=== PATIENT | female | born 1990 | race Caucasian/White ===

== ENCOUNTER 2020-06-10 12:54 | Inpatient (IN) | payer OTHER ==
[~2020-06-10] VITALS: Ht 182.9 cm; Wt 79.9 kg
[2020-06-10] MEDS ORDERED: IV NORMAL SALINE 1,000ML 1,000 ML IV ONE (13:15)
--- NOTE | 2020-06-10 13:16 | PHYS DOC ---
Past History Past Medical History: No Pertinent History Adult General Chief Complaint Chief Complaint: MUSCLE SPASM/CRAMP HPI HPI Patient is a 30-year-old female who presents for rhabdomyolysis. Patient currently on Accutane, reports having extremely strenuous workout 3 days prior to arrival. Ever since has complained of extreme muscle soreness. Patient concerned as she is currently on Accutane and rhabdomyolysis is often a side effect of taking this medication. Patient saw primary care physician this morning who performed routine laboratory analysis, her creatinine kinase was approximately 13,000 at that time. PCP advised patient to seek further evaluation at our ER for consideration for admission for continued medical management. Patient denies any headache, chest pain, shortness of breath, fever, chills, motor or sensory deficits but admits occasional muscle cramping and ongoing soreness and fatigue. Admits her urine production has been steady throughout, has been tolerating p.o. intake Review of Systems Review of Systems Fourteen body systems of review of systems have been reviewed. See HPI for pertinent positives and negative responses, other echavarria all other systems are negative, non-pertinent or non-contributory Current Medications Current Medications Current Medications Medications (Trade) Dose Ordered Sig/Asad Start Time Stop Time Status Last Admin Dose Admin Sodium Chloride 1,000 ml @ 1,000 mls/hr 1X ONCE 06/10/20 13:15 06/10/20 14:14 Allergies Allergies Allergies Coded Allergies Type Severity Reaction Last Updated Verified Penicillins Allergy Intermediate Hives 06/10/20 Yes Physical Exam Physical Exam Constitutional: Well developed, well nourished, no acute distress, non-toxic dara earance. Tolerating p.o. intake on arrival HENT: Normocephalic, atraumatic, bilateral external ears normal, oropharynx moist, no oral exudates, nose normal. Eyes: PERRLA, EOMI, conjunctiva normal, no discharge. Neck: Normal range of motion, no tenderness, supple, no stridor. Cardiovascular: Heart rate regular, sinus rhythm, no murmurs rubs or gallops Lungs & Thorax: Bilateral breath sounds clear to auscultation Abdomen: Bowel sounds normal, soft, no tenderness, no masses, no pulsatile masses. Nonsurgical abdomen, no peritoneal signs Skin: Warm, dry, no erythema, no rash. Back: No tenderness, no CVA tenderness. Extremities: No cyanosis, no clubbing, ROM intact, no edema. Tenderness to bilateral upper and lower extremities proximally in thighs/hamstrings and biceps/triceps with palpation. No gross deficits noted, gait unremarkable Neurologic: Alert and oriented X 3, grossly normal motor & sensory function, no focal deficits noted. Psychologic: Affect normal, judgement normal, mood normal. Current Patient Data Vital Signs Vital Signs Date Time Temp Pulse Resp B/P (MAP) Pulse Ox O2 Delivery O2 Flow Rate FiO2 06/10/20 16:12 98.8 60 18 123/91 (102) 97 Room Air Lab Results Laboratory Tests Test 06/10/20 13:19 White Blood Count 6.2 x10^3/uL (4.0-11.0) Red Blood Count 4.38 x10^6/uL (3.50-5.40) Hemoglobin 13.1 g/dL (12.0-15.5) Hematocrit 39.2 % (36.0-47.0) Mean Corpuscular Volume 90 fL (79-100) Mean Corpuscular Hemoglobin 30 pg (25-35) Mean Corpuscular Hemoglobin Concent 33 g/dL (31-37) Red Cell Distribution Width 13.6 % (11.5-14.5) Platelet Count 256 x10^3/uL (140-400) Neutrophils (%) (Auto) 56 % (31-73) Lymphocytes (%) (Auto) 32 % (24-48) Monocytes (%) (Auto) 9 % (0-9) Eosinophils (%) (Auto) 2 % (0-3) Basophils (%) (Auto) 1 % (0-3) Neutrophils # (Auto) 3.5 x10^3uL (1.8-7.7) Lymphocytes # (Auto) 2.0 x10^3/uL (1.0-4.8) Monocytes # (Auto) 0.6 x10^3/uL (0.0-1.1) Eosinophils # (Auto) 0.1 x10^3/uL (0.0-0.7) Basophils # (Auto) 0.0 x10^3/uL (0.0-0.2) Urine Collection Type Unknown Urine Color Yellow Urine Clarity Clear Urine pH 6.5 Urine Specific [place] 1.015 Urine Protein Neg (NEG-TRACE) Urine Glucose (UA) Neg mg/dL (NEG) Urine Ketones (Stick) Neg mg/dL (NEG) Urine Blood Trace (NEG) Urine Nitrite Neg (NEG) Urine Bilirubin Neg (NEG) Urine Urobilinogen Dipstick 0.2 mg/dL (0.2 mg/dL) Urine Leukocyte Esterase Neg (NEG) Urine RBC 3-5 /HPF (0-2) Urine WBC Occ /HPF (0-4) Urine Squamous Epithelial Cells Few /LPF Urine Bacteria 0 /HPF (0-FEW) Urine Test Negative (NEG) Sodium Level 139 mmol/L (136-145) Potassium Level 3.8 mmol/L (3.5-5.1) Chloride Level 101 mmol/L (98-107) Carbon Dioxide Level 28 mmol/L (21-32) Anion Gap 10 (6-14) Blood Urea Nitrogen 12 mg/dL (7-20) Creatinine 1.0 mg/dL (0.6-1.0) Estimated GFR (Cockcroft-Gault) 64.7 BUN/Creatinine Ratio 12 (6-20) Glucose Level 70 mg/dL (70-99) Calcium Level 8.9 mg/dL (8.5-10.1) Total Bilirubin 0.3 mg/dL (0.2-1.0) Aspartate Amino Transf (AST/SGOT) 260 U/L (15-37) Alanine Aminotransferase (ALT/SGPT) 52 U/L (14-59) Alkaline Phosphatase 50 U/L (46-116) Creatine Kinase 76432 U/L (26-192) Total Protein 7.7 g/dL (6.4-8.2) Albumin 4.0 g/dL (3.4-5.0) Albumin/Globulin Ratio 1.1 (1.0-1.7) EKG EKG [] Radiology/Procedures Radiology/Procedures [] Heart Score HEART Score for Chest Pain: HEART Score for Chest Pain Response (Comments) Value History Slighlty/Non-Suspicious 0 ECG Normal 0 Age < 45 0 Risk Factors No Risk Factors 0 Total 0 Risk Factors: Risk Factors: DM, Current or recent (<one month) smoker, HTN, HLP, family history of CAD, obesity. Risk Scores: Risk Factors: DM, Current or recent (<one month) smoker, HTN, HLP, family history of CAD, obesity. Course & Med Decision Making Course & Med Decision Making Pertinent Labs and Imaging studies reviewed. (See chart for details) Discussed most likely diagnosis of rhabdomyolysis with patient. I advised her the need of discontinuation of Accutane temporarily and need for admission for continued IV fluid rehydration. She was amenable Dr. Venegas, on-call hospitalist at [facility] was contacted and case discussed, he agreed to admission under his care for continued medical management Patient updated on plan of care and amenable, all questions and concerns addressed prior to ER departure to [facility] for further medical management in stable condition Dragon Disclaimer Dragon Disclaimer This electronic medical record was generated, in whole or in part, using a voice recognition dictation system. Departure Departure: Impression: Primary Impression: Rhabdomyolysis Additional Impression: On Accutane therapy Disposition: 09 ADMITTED INPT THIS HOSP Admitting Physician: Modesto Venegas Condition: STABLE Referrals: SONIA CHEUNG MD (PCP) Problem Qualifiers JUNE CHRISTY DO Jun 10, 2020 13:16
[2020-06-10 13:39] LABS: BASO % 1 % (0-3); EOS # 0.1 x10^3/uL (0.0-0.7); EOS % 2 % (0-3); HEMATOCRIT 39.2 % (36.0-47.0); HEMOGLOBIN 13.1 g/dL (12.0-15.5); LYMPH % 32 % (24-48); MEAN CORPUSCULAR HEMOGLOBIN 30 pg (25-35); MEAN CORPUSCULAR HGB CONC 33 g/dL (31-37); MEAN CORPUSCULAR VOLUME 90 fL (79-100); MONO # 0.6 x10^3/uL (0.0-1.1); MONO % 9 % (0-9); NEUT # 3.5 x10^3uL (1.8-7.7); NEUT % 56 % (31-73); PLATELET COUNT 256 x10^3/uL (140-400); RED BLOOD COUNT 4.38 x10^6/uL (3.50-5.40); RED CELL DISTRIBUTION WIDTH 13.6 % (11.5-14.5); WHITE BLOOD COUNT 6.2 x10^3/uL (4.0-11.0)
[2020-06-10 13:46] LABS: CALCIUM 8.9 mg/dL (8.5-10.1); GFR 64.7; POTASSIUM 3.8 mmol/L (3.5-5.1)
[2020-06-10 13:52] LABS: COLOR,URINE YELLOW
[2020-06-10 13:53] LABS: BACTERIA,URINE 0 /HPF (0-FEW); BILIRUBIN,URINE NEG (NEG); CLARITY,URINE CLEAR; GLUCOSE,URINE NEG (NEG); NITRITE,URINE NEG (NEG); SQUAMOUS EPITHELIAL CELL,UR FEW /LPF; U PREG PATIENT NEGATIVE (NEG); UROBILINOGEN,URINE 0.2 mg/dL (0.2 mg/dL); WBC,URINE OCC /HPF (0-4)
[2020-06-10 14:02] LABS: ALBUMIN/GLOBULIN RATIO 1.1 (1.0-1.7); TOTAL BILIRUBIN 0.3 mg/dL (0.2-1.0); TOTAL PROTEIN 7.7 g/dL (6.4-8.2)
[2020-06-10] MEDS: IV NORMAL SALINE 1,000ML 1,000 ML IV SCH ×2 (15:05→16:29)
[2020-06-10 16:12] VITALS: BP 123/91
[2020-06-10] MEDS ORDERED: [UNRECOGNIZED DRUG - OTHER] PO (16:56)
[2020-06-10 19:45] VITALS: BP 132/75
[2020-06-10 22:56] VITALS: BP 129/64
[2020-06-11] MEDS: IV NORMAL SALINE 1,000ML 1,000 ML IV SCH (00:34)
[2020-06-11 05:41] VITALS: BP 104/68
[2020-06-11 06:46] LABS: CALCIUM 8.3 mg/dL (8.5-10.1); GFR 64.7; POTASSIUM 3.7 mmol/L (3.5-5.1)
--- NOTE | 2020-06-11 09:17 | DS ---
DATE OF DISCHARGE: 06/11/2020 ATTENDING PHYSICIAN: Dr. Armstrong. FINAL DISCHARGE DIAGNOSES: 1. Acute rhabdomyolysis. 2. Myalgias. 3. History of Accutane use for acne. HISTORY OF PRESENT ILLNESS: The patient is a 30-year-old female who had a rigorous workout 3 days prior to admission. She was also on Accutane. She had myalgias. Lab work showed an acute rhabdomyolysis. PHYSICAL EXAMINATION: Please see the dictated note. PERTINENT LABORATORY AND X-RAY STUDIES: Admission hemoglobin was 13.1 g/dL with white count of 6200. The initial CPK was 17,234, repeated the next morning is down to 11,500. Her creatinine on admission and repeated stated 1.0 mg/dL. Electrolytes within normal range. COURSE IN THE HOSPITAL: The patient was admitted. She was started on IV hydration. Diet was advanced. No new meds were entertained. Her repeat lab work the next day showed a stable creatinine, CPK is coming down from 17,000-11,500. She felt well. She was medically stable, she was ready for discharge. I recommended that: 1. She call her improvement nurse regarding further Accutane use following the overnight hospitalization. 2. I recommended repeat lab work with her primary care physician in 2 weeks. This patient was then discharged from our hospital in stable condition with explicit instructions and followup care. GARY ARMSTRONG MD DR: DARRELL/navya JOB#: [id number] / [id number]
--- NOTE | 2020-06-11 09:21 | HP ---
ADMIT DATE: 06/11/2020 ATTENDING PHYSICIAN: Dr. Armstrong. CHIEF COMPLAINT: Muscle spasm. HISTORY OF PRESENT ILLNESS: The patient is a fairly healthy 30-year-old female who had a strenuous workout 3 days prior to admission. She was also taking Accutane is only medication. She has extreme muscle soreness. Lab work showed rhabdomyolysis with a creatine kinase of 13,000 and repeated was 17,000. She had no signs of renal failure. She was admitted then for hydration and followup. PAST MEDICAL HISTORY: Significant for the acne. SOCIAL HISTORY: She is . She has 2 children, ages 2 and 4. She is a nonsmoker and nondrinker. ALLERGIES: SHE HAS ALLERGIES TO PENICILLIN, WHICH CAUSES RASH. FAMILY HISTORY: Both her parents are alive in their late 50s, they were both smokers, they were moderately healthy. REVIEW OF SYSTEMS: Significant for the workout 3 days ago muscle soreness in both arms, worse on the right side. No nausea or vomiting. No COVID exposure. No fevers or chills. All other systems reviewed and determined to be negative. PHYSICAL EXAMINATION: GENERAL: When I saw her, this is a pleasant young female. INITIAL VITAL SIGNS: Showed a blood pressure of 129/64 mmHg, pulse of 63 and regular. She was afebrile, room air saturation 98%. HEENT: Head is without trauma. Pupils are reactive. Sclerae nonicteric. Oropharynx is clear. NECK: Supple, no bruits identified. LUNGS: Clear. CARDIOVASCULAR: Showed regular heart tones. No gallops, no murmurs. Peripheral pulses are palpable and full. ABDOMEN: Soft, scaphoid, nontender, no organomegaly. EXTREMITIES: Showed no cyanosis or edema. NEUROLOGIC FINDINGS: Focally intact. SKIN: Warm and dry. PERTINENT LABORATORY STUDIES: The admission ____ CPK was 17,234. Liver panel unremarkable. Electrolytes within range. Hemoglobin 13.1 g/dL, white count 6200. ASSESSMENT: 1. A 30-year-old female with acute rhabdomyolysis. 2. History of Accutane use due to acne. PLAN: 1. Admit to the inpatient unit. 2. IV hydration. 3. Serial chemistries. 4. Serial CPKs. GARY ARMSTRONG MD DR: DARRELL/navya JOB#: [id number] / [id number]
== END 2020-06-11 09:18 | disposition home or self-care (01) | DRG 558 ==
LOC: ER 12:54 → 1 SOUTH 15:00
PROVIDERS: ADMIT Hospitalist; ATTEND Hospitalist
DX: M62.82 Rhabdomyolysis (principal); Z88.0 Allergy status to penicillin; Z79.899 Other long term (current) drug therapy; M62.838 Other muscle spasm
CPT/HCPCS: 36415; 80048; 80053; 81001; 81025; 82550; 85025; 96360; 99285-25; J7030